=== PATIENT | female | born 1985 | race Caucasian/White ===

== ENCOUNTER 2019-07-24 19:16 | Emergency (ER) | payer SELFPAY ==
[~2019-07-24] VITALS: Ht 154.9 cm; Wt 63.5 kg
[2019-07-24 19:20] VITALS: BP 105/66
--- NOTE | 2019-07-24 19:23 | NUR ---
TO LOBBY A/W BED AMBULATORY
--- NOTE | 2019-07-24 20:20 | NUR ---
PT AMBULATED TO [facility]
[2019-07-24] MEDS ORDERED: KETOROLAC 60 MG/2 ML VIAL IM ONE ×2 (21:30→22:51)
[2019-07-24] MEDS ORDERED: ONDANSETRON 4 MG ODT PO ONE (21:30)
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
--- NOTE | 2019-07-24 22:56 | NUR ---
gave toradol im 60mg on right deltoid per pa tobin order.
[2019-07-24 23:26] VITALS: BP 105/66
--- NOTE | 2019-07-24 23:26 | NUR ---
Patient discharged with v/s stable. Written and verbal after care instructions given and explained. Patient alert, oriented and verbalized understanding of instructions. Ambulatory with steady gait. All questions addressed prior to discharge. ID band removed. Patient advised to follow up with PMD. Rx of AUGMENTIN, FLEXIRIL, IBUPROFEN, MEDROL given. Patient educated on indication of medication including possible reaction and side effects. Opportunity to ask questions provided and answered.
== END 2019-07-24 23:26 | disposition home or self-care (01) ==
LOC: MED 19:16
DX: S16.1XXA Strain of muscle, fascia and tendon at neck level, initial encounter (principal); M79.18 Myalgia, other site; X58.XXXA Exposure to other specified factors, initial encounter; Y93.89 Activity, other specified; Y92.89 Other specified places as the place of occurrence of the external cause; Y99.8 Other external cause status
CPT/HCPCS: 72040; 99283; J1885; Q0162

== ENCOUNTER 2019-07-29 17:04 | Emergency (ER) | payer SELFPAY ==
[~2019-07-29] VITALS: Ht 157 cm; Wt 68.9 kg
[2019-07-29 17:17] VITALS: BP 119/75
--- NOTE | 2019-07-29 17:34 | NUR ---
PT AMBULATED TO BED 3 W/ STEADY GAIT.
--- NOTE | 2019-07-29 17:49 | NUR ---
dr pickering at bedside evaluating pt.
--- NOTE | 2019-07-29 17:50 | NUR ---
SEEN HERE ON 07/23, CERVICAL XRAY WAS TAKEN AND PT D/C. PT STATES PAIN IS WORSENING. PT AWAKE ,ALERT, AMBULATORY WITH STEADY GAIT, PAIN ON NECK AT 10/10,UPON MOVEMENT. HX- DENIES
[2019-07-29] MEDS ORDERED: ACETAMINOPHEN EXTRA STRENGTH 500 MG TAB PO ONE (17:55)
[2019-07-29] MEDS ORDERED: KETOROLAC 15 MG/ML VIAL IM ONE (17:55)
--- NOTE | 2019-07-29 18:05 | NUR ---
PO MEDS GIVEN-NADR AT THIS TIME
--- NOTE | 2019-07-29 18:13 | NUR ---
xray at bedside.
[2019-07-29 18:56] VITALS: BP 120/76
--- NOTE | 2019-07-29 18:56 | NUR ---
Patient discharged with v/s stable. Written and verbal after care instructions given and explained regarding back pain. Patient alert, oriented and verbalized understanding of instructions. Ambulatory with steady gait. All questions addressed prior to discharge. ID band removed. Patient advised to follow up with PMD. Rx of flexeril given. Patient educated on indication of medication including possible reaction and side effects. Opportunity to ask questions provided and answered.
== END 2019-07-29 18:56 | disposition home or self-care (01) ==
LOC: MED 17:04
DX: M54.9 Dorsalgia, unspecified (principal); M54.2 Cervicalgia; V49.59XA Passenger injured in collision with other motor vehicles in traffic accident, initial encounter; Y93.89 Activity, other specified; Y92.89 Other specified places as the place of occurrence of the external cause; Y99.8 Other external cause status
CPT/HCPCS: 71045; 81002; 81025; 96372; 99283; J1885; Q0092